=== PATIENT | female | born 1965 | race Caucasian/White ===

== ENCOUNTER → 2016-06-30 | Outpatient (CLI) | payer BC | LOC: KOH-I 10:33 | DX: J20.9 Acute bronchitis, unspecified (principal); J01.10 Acute frontal sinusitis, unspecified | CPT/HCPCS: 71020 ==

== ENCOUNTER → 2020-12-03 | Outpatient (CLI) | payer BC | LOC: KOH-I 08:57 | DX: M79.671 Pain in right foot (principal) | CPT/HCPCS: 73630 ==